=== PATIENT | female | born 1970 | race Caucasian/White ===

== ENCOUNTER 2019-01-16 17:10 | Emergency (ER) | payer OTHER ==
--- OUTSIDE RECORDS SUMMARY | 2019-01-16 17:12 | XMS REPORT | Clinical Summary ---
:1970 Author Organization [facility] Address [address] [place] [address] Care Team Providers Name Role Phone Asked, No Pcp Primary Care Provider Unavailable Allergies Active Allergy Reactions Severity Noted Date Comments Povidone-Iodine Rash Low 03/10/2017 Codeine GI Intolerance 03/10/2017 Prochlorperazine Other (See Comments) 03/10/2017 "almost went into a coma " Penicillins Rash Low 03/10/2017 Tetracyclines Other (See Comments) 03/10/2017 "felt like I am out of it" Medications Medication Sig Dispensed Refills Start Date End Date Status ondansetron (ZOFRAN) 4 Take 8 mg by 0 Active mg/5 mL solution mouth once. Active Problems Not on file Social History Tobacco Use Types Packs/Day Years Used Date Never Smoker Alcohol Use Drinks/Week oz/Week Comments No Sex Assigned at Date Recorded Not on file Job Start Date Occupation Industry Not on file Not on file Not on file Travel History Travel Start Travel End No recent travel history available. Last Filed Vital Signs Not on file Plan of Treatment Not on file Results Not on fileafter 01/15/2018 Advance Directives Patient has advance care planning documents on file. For more information, please contact:[address] [address]
--- OUTSIDE RECORDS SUMMARY | 2019-01-16 17:13 | XMS REPORT | Summary of Care ---
:1970 Author Organization [facility] Address [address] [place], [place] [address]- Encounter HQ Encntr_alias(FIN) [id number] Date(s): 04/20/16 - 04/20/16 [facility] [id number] [place] [address] Discharge Disposition: Home or Self Care Attending Physician: Geovanny aCrey MD Vital Signs No data available for this section Problem List No data available for this section Allergies, Adverse Reactions, Alerts Substance Reaction Severity Status Betadine Active Compazine Active erythromycin Active penicillins Active tetracyclines Active Medications No data available for this section Results No data available for this section Immunizations No data available for this section Procedures Procedure Date Related Diagnosis Body Site gall bladder Hysterectomy Shoulder Tonsil Social History Social History Type Response Smoking Status Never smoker; Exposure to Tobacco Smoke None; Cigarette Smoking Last 365 Days No; Reg Smoking Cessation Counseling No Assessment and Plan No data available for this section
--- OUTSIDE RECORDS SUMMARY | 2019-01-16 17:13 | XMS REPORT ---
:1970 Author Organization [facility] Address [address] [place] [address] Dr. Fontana[address] [place] [id number] Care Team Providers Name Role Phone Unavailable Unavailable Unavailable Problems This patient has no known problems. Allergies, Adverse Reactions, Alerts This patient has no known allergies or adverse reactions. Medications This patient has no known medications.
--- OUTSIDE RECORDS SUMMARY | 2019-01-16 17:13 | XMS REPORT | Continuity of Care Document ---
:1970 Author Organization Interface Problems Problem Status Onset Classification Date Comments Source Date Reported N39.0 - Active [facility] "URINARY TRACT 6 [facility] INFECTION, SITE" [id number]- Active [facility] HEART BURN , 6 City EPIGASTRIC SARAH 726.2 - Active [facility] SHOULDER 3 [facility] [place] BREATHING Active [facility] PROBLEM 2 Hospital CONGESTION Active [facility] 2 Hospital Medications Medication Details Route Status Patient Ordering Order Source Instructions Provider Date Xopenex 0.63 0.63 mg, 3 ml, NEB Active [facility] mg/3 mL NEB, TID, 24 012 Hospital inhalation ea, solution Substitution Allowed, SOLN Levaquin 750 750 mg, 1 tab, PO Active [facility] mg oral PO, Q24H, 10 012 Hospital tablet tab, Substitution Allowed Allergies, Adverse Reactions, Alerts Substance Category Reaction Severity Reaction Status Date Comments Source type Reported Betadine Assertion Drug Active [facility] allergy [facility] Compazine Assertion Drug Active [facility] allergy [facility] erythromycin Assertion Drug Active [facility] allergy [facility] penicillins Assertion Drug Active [facility] allergy [facility] tetracyclines Assertion Drug Active [facility] allergy [facility] Immunizations Immunization Date Given Site Status Last Updated Comments Source Results Order Results Value Reference Date Interpretation Comments Source Name Range Renal Renal PROCEDURE: CT ABDOMEN AND PELVIS WITHOUT CONTRAST 04/20 - [facility] Stone CT Stone /2015 - [facility] Clinical Indication: UTIs symptoms for 3 weeks. Mild anterior pelvic pain for several weeks. Read by: Devaughn Curry MD Dictated Date/time: 04/20/16 12:35 Comparison: None Electronically Signed by: Devaughn Curry MD 04/20/16 12:39 FINAL REPORT TECHNIQUE: Helical imaging was performed diaphragm through the symphysis with multiplanar reconstructions. IV CONTRAST: None. GI CONTRAST: Water. DLP: 477.06 mGy-cm FINDINGS: This examination is limited for the evaluation of solid organs and vascular structures due to lack of intravenous contrast. LOWER CHEST: The lung bases are clear. LIVER: Normal. GALLBLADDER: Normal. SPLEEN: Normal. PANCREAS: Normal. ADRENALS: Normal. KIDNEYS: Normal. BOWEL: Normal. PERITONEUM: No free intraperitoneal fluid or air. RETROPERITONEUM: No adenopathy. The aorta is normal. PELVIS: No pelvic mass. The urinary bladder is empty but otherwise normal. MUSCULOSKELETAL: The skeleton is intact. IMPRESSION: Negative. END REPORT SL: [id number] Abdomen Abdomen 1 VIEW ABDOMEN 04/10 - [facility] AP DX AP DX /2015 - [facility] INDICATION: Bilateral abdominal pain. Read by: Devaughn Crury MD Dictated Date/time: 04/10/16 17:49 Electronically Signed by: Devaughn Curry MD 04/10/16 17:50 FINAL REPORT COMPARISON: No priors available. 2 small indeterminate calcifications are noted in the pelvis just to the right of midline. Cannot completely exclude distal ureteral stones or bladder stones. These are 2 to 3 mm in diameter each. The b owel gas pattern, soft tissues and bony structures are otherwise normal. IMPRESSION: 2 small, 2 to 3 mm diameter, calcifications in the right pelvis as noted above. END IMPRESSION SL: [id number] Vital Signs Vital Sign Value Date Comments Source Weight 77.273 06/05/2012 [facility] Height 165.10 cm 06/05/2012 [facility] Height 165.10 cm 05/30/2012 [facility] Weight 77.273 05/30/2012 [facility] Encounters Location Location Encounter Encounter Reason Attending ADM DC Status Source Details Type Number For Provider Date Date Visit [facility] Emergency [id number] SARITA 05/30 05/30 Active [facility] 0 SARA /2011 [facility] Emergency [id number] WADE 06/04 06/05 Active [facility] 1 OLU /2011 [facility] Out[facility] Diag [id number] Geovanny Carey 04/10 04/11 [facility] [place] Outpt Diag [id number] Geovanny Carey 04/20 04/21 [facility] Outpatient [id number] GEOVANNY CAREY 05/[address] [facility] Procedures Procedure Code Date Perfomer Comments Source gall bladder [id number] [facility] Hysterectomy [id number] [facility] Shoulder [id number] [facility] Tonsil [id number] [facility]
--- OUTSIDE RECORDS SUMMARY | 2019-01-16 17:13 | XMS REPORT | Summary of Care ---
:1970 Author Organization [facility] Address [address] [place], [place] [address]- Encounter HQ Encntr_alias(FIN) [id number] Date(s): 04/10/16 - 04/10/16 [facility] [address] [place] [id number] Discharge Disposition: Home or Self Care Attending Physician: Geovanny Carey MD Vital Signs No data available for [...]
--- OUTSIDE RECORDS SUMMARY | 2019-01-16 17:13 | XMS REPORT | CCD ---
:1970 Author Organization [facility] Care Team Providers Name Role Phone Susanne Prince Consulting Provider Allergies, Adverse Reactions, Alerts Substance Reaction Status Betadine Active Compazine Active erythromycin Active penicillins Active tetracyclines Active Medications Medication Instructions Start Date End Date Status Xopenex 0.63 mg/3 mL 0.63 mg, 3 ml, NEB, TID, 24 05/30/2012 Ordered inhalation solution ea, Substitution Allowed, SOLN Levaquin 750 mg oral tablet 750 mg, 1 tab, PO, Q24H, 10 05/30/20122011 Ordered tab, Substitution Allowed Vital Signs Most recent to oldest [Reference Range]: 1 Height 165.10 cm (05/30/2012 15:45:00) Weight 77.273 kg (05/30/2012 15:45:00)
--- OUTSIDE RECORDS SUMMARY | 2019-01-16 17:13 | XMS REPORT | CCD ---
:1970 Author Organization [facility] Care Team Providers Name Role Phone Rony Maciel Consulting Provider Allergies, Adverse Reactions, Alerts Substance Reaction Status Betadine Active Compazine Active erythromycin Active penicillins Active tetracyclines Active Vital Signs Most recent to oldest [Reference Range]: 1 Height 165.10 cm (06/04/2012 23:51:00) Weight 77.273 kg (06/04/2012 23:51:00)
[2019-01-16] MEDS ORDERED: METOCLOPRAMIDE 10 MG/2mL INJ ONE (17:55)
[2019-01-16] MEDS ORDERED: NA CHLORIDE 0.9% 1,000 ML ONE ×2 (17:55→18:56)
[2019-01-16 18:02] LABS: Absolute Monocytes 0.7 K/uL (0.1-1.3); Absolute Neutrophil 8.5 K/uL (1.8-8.0); Hematocrit 42.2 % (36.0-45.0); Lymphocytes % 24.1 % (15.3-44.8); MPV 9.7 fL (7.6-11.3); Monocytes % 5.7 % (3.3-12.3)
[2019-01-16] MEDS ORDERED: ONDANSETRON 4 MG/2 ML VIAL ONE (18:14)
[2019-01-16 18:27] LABS: ALT/SGPT 37 U/L (12-78); AST/SGOT 17 U/L (15-37); Albumin 4.1 g/dL (3.4-5.0); Alkaline Phosphatase 72 U/L (45-117); BUN Blood Urea Nitrogen 20 mg/dL (7-18); Bicarbonate 27 mmol/L (21-32); Bilirubin Direct < 0.1 mg/dL (0-0.2); Bilirubin Total 0.5 mg/dL (0.2-1.0); Creatine Phosphokinase 123 U/L (26-192); Glucose Level 110 mg/dL (74-106); Lipase 187 U/L (73-393); Potassium 3.5 mmol/L (3.5-5.1); Protein, Total 8.2 g/dL (6.4-8.2); Sodium Level 138 mmol/L (136-145)
[2019-01-16 18:46] LABS: Urine Blood NEGATIVE (NEG); Urine Glucose NEGATIVE (NEG); Urine Protein NEGATIVE (NEG); Urine Specific Gravity >1.030 (1.005-1.030); Urine pH 5.5 (5.0-7.0)
[2019-01-16] MEDS ORDERED: ACETAMINOPHEN 500 MG TAB ONE (18:56)
--- NOTE | 2019-01-16 19:21 | ER ---
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 Pt denies vomiting. Transition of care: patient was not received from another setting of care. Onset of symptoms was January 16, 2019. Risk Assessment: Do you want to hurt yourself or someone else? Patient reports no desire to harm self or others. Care prior to arrival: None. 17:22 Method Of Arrival: Ambulatory aa5 17:22 Acuity: ERNST 3 aa5 19:44 Initial Sepsis Screen: Does the patient meet any 2 criteria? No. Patient's initial ak1 sepsis screen is negative. Does the patient have a suspected source of infection? No. Patient's initial sepsis screen is negative. 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 - Social history:: Smoking status: Patient/guardian denies using tobacco. - Ebola Screening: : No symptoms or risks identified at this time. Screenin:14 Abuse screen: Denies threats or abuse. Denies injuries from another. Nutritional ch screening: No deficits noted. Tuberculosis screening: No symptoms or risk factors identified. Fall Risk None identified. Assessment: 18:14 General: Appears in no apparent distress. comfortable, Behavior is calm, cooperative, ch appropriate for age. Pain: Complains of pain in top of head Pain currently is 6 out of 10 on a pain scale. Pain began suddenly. Neuro: Level of Consciousness is awake, alert, obeys commands, Oriented to person, place, time, situation, Sighter are equal bilaterally Moves all extremities. Full function Gait is steady, Speech is normal, Facial symmetry appears normal, Facial symmetry: tongue is midline, Pupils are PERRLA. Respiratory: Airway is patent Trachea midline Respiratory effort is even, unlabored, Respiratory pattern is regular. GI: Abdomen is round non-distended, Bowel sounds present X 4 quads. Abd is soft and non tender X 4 quads. Reports nausea. : No signs and/or symptoms were reported regarding the genitourinary system. Derm: Skin is intact, Skin is dry, Skin is pale. Musculoskeletal: Reports pt states she feels weak and achy. 18:49 Reassessment: Patient appears in no apparent distress at this time. Patient and/or ch family updated on plan of care and expected duration. Pain level reassessed. Patient is alert, oriented x 3, equal unlabored respirations, skin warm/dry/pink. pt states she feels slightly better, but still having pain, still slightly nauseated. 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 pt states she still does not need to urinate. pt given second L fluid. 18:51 Reassessment: Patient appears in no apparent distress at this time. Patient and/or ch family updated on plan of care and expected duration. Pain level reassessed. Patient is alert, oriented x 3, equal unlabored respirations, skin warm/dry/pink. Patient states feeling better. 19:38 Reassessment: pt wants to finish her IV fluids and then see if she "needs" the Toradol. ak1 pt currently refused the toradol. Patient denies pain at this time. 20:08 Reassessment: Patient appears in no apparent distress at this time. Patient is alert, rr5 oriented x 3, equal unlabored respirations, skin warm/dry/pink. patient refused for the Toradol injection. discharge instruction given and explained without complaints made. Patient states feeling better. Patient states symptoms have improved. Vital Signs: 17:24 BP 139 / 85; Pulse 86; Resp 16 S; Temp 98.2(O); Pulse Ox 99% on R/A; Weight 81.65 kg aa5 (R); Height 5 ft. 5 in. (165.10 cm) (R); Pain 6/10; 18:14 BP 136 / 88; Pulse 74; Resp 16; Temp 99; Pulse Ox 100% on R/A; Pain 5/10; ch 18:52 BP 126 / 82; Pulse 64; Resp 14; Pulse Ox 99% on R/A; Pain 5/10; ch 19:43 BP 114 / 76; Pulse 74; Resp 16; Temp 98.8; Pulse Ox 97% on R/A; Pain 2/10; ak1 20:08 BP 117 / 73; Pulse 77; Resp 17; Temp 98; Pulse Ox 99% on R/A; rr5 17:24 Body Mass Index 29.95 (81.65 kg, 165.10 cm) aa5 ED Course: 17:15 Patient arrived in ED. mr 17:23 Triage completed. aa5 17:24 Arm band placed on. aa 17:27 Hernandez Lei PA is PHCP. [facility] 17:27 Ivan Keene MD is Attending Physician. [facility] 17:50 No apparent distress. Resting quietly. ch 17:50 No provider procedures requiring assistance completed. Inserted saline lock: 18 gauge ch in left antecubital area, using aseptic technique. Blood collected. Missed attempt(s): 20 gauge in right forearm. Bleeding controlled, band aid applied, catheter tip intact. 18:02 Jennifer Melendez, RN is Primary Nurse. ch 18:14 Patient has correct armband on for positive identification. Placed in gown. Bed in low ch position. Call light in reach. Side rails up X 1. Pulse ox on. NIBP on. Warm blanket given. 19:17 Report given to marlen. ch 19:32 Marlen Elam, RN is Primary Nurse. ak1 20:09 IV discontinued, intact, bleeding controlled, No redness/swelling at site. Pressure rr5 dressing applied. Administered Medications: 17:55 Drug: NS 0.9% 1000 ml Route: IV; Rate: 1 bolus; Site: left antecubital; ch 18:40 Follow up: IV Status: Completed infusion; IV Intake: 1000ml ch 18:00 Drug: Zofran 4 mg Route: IVP; Site: left antecubital; ch 18:49 Follow up: Response: No adverse reaction; Nausea is decreased ch 18:18 Not Given (Patient Refused): Reglan 10 mg IVP once; put in bolus ch 18:49 Drug: NS 0.9% 1000 ml Route: IV; Rate: 1 bolus; Site: left antecubital; 20:00 Follow up: Response: No adverse reaction; IV Status: Completed infusion; IV Intake: rr5 1000ml 20:09 Not Given (Patient Refused): Ketorolac 30 mg IVP once rr5 Intake: 18:40 IV: 1000ml; Total: 1000ml. 20:00 IV: 1000ml; Total: 2000ml. rr5 Outcome: 19:22 Discharge ordered by . kyler 19:44 Condition: good ak1 20:09 Discharged to home ambulatory. rr5 20:09 Discharge instructions given to patient, Instructed on discharge instructions, follow up and referral plans. Demonstrated understanding of instructions, follow-up care. 20:11 Patient left the ED. rr5 Signatures: Jennifer Melendez, RN RN Hernandez Carnes PA PA jmm Rivera, Mary mr Parish, Alexa, OCTAVIO RN aa5 Marlen Elam RN RN ak1 Gianni Muhammad RN RN rr5
--- NOTE | 2019-01-16 19:22 | EDPHYS ---
Physician Documentation [facility] Name: Mely Lindsey Age: 48 yrs Sex: Female : 1970 Arrival Date: 01/16/2019 Time: 17:15 Bed 14 Private MD: ED Physician Ivan Keene HPI: 01/16 17:38 This 48 yrs old Female presents to ER via Ambulatory with complaints of Heat jmm Exposure. 17:38 The patient complains of pain to the top of head. Onset: The symptoms/episode jmm began/occurred gradually. Associated signs and symptoms: Pertinent positives: weakness, Pertinent negatives: fever. This is a 48 year old female with a history of acid reflux that presets to the ED with complaints of headache, nausea, fatigue. 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 Patient attempted to drink fluids and take tylenol with no relief. . 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 - Social history:: Smoking status: Patient/guardian denies using tobacco. - Ebola Screening: : No symptoms or risks identified at this time. ROS: 17:38 Cardiovascular: Negative for chest pain, palpitations, and edema, Respiratory: Negative jmm for shortness of breath, cough, wheezing, and pleuritic chest pain. 17:38 Constitutional: Positive for fatigue. 17:38 Abdomen/GI: Positive for nausea. 17:38 All other systems are negative. Exam: 17:38 Head/Face: atraumatic. Eyes: EOMI, no conjunctival erythema appreciated ENT: Moist jmm Mucus Membranes Neck: Trachea midline, Supple Chest/axilla: Normal chest wall appearance and motion. Cardiovascular: Regular rate and rhythm. No edema appreciated Respiratory: Normal respirations, no respiratory distress appreciated Abdomen/GI: Non distended, soft Back: Normal ROM Skin: General appearance color normal MS/ Extremity: Moves all extremities, no obvious deformities appreciated, no edema noted to the lower extremities Neuro: Awake and alert, normal gait Psych: Behavior is normal, Mood is normal, Patient is cooperative and pleasant 17:38 Constitutional: The patient appears in no acute distress, alert, awake. Vital Signs: 17:24 BP 139 / 85; Pulse 86; Resp 16 S; Temp 98.2(O); Pulse Ox 99% on R/A; Weight 81.65 kg aa5 (R); Height 5 ft. 5 in. (165.10 cm) (R); Pain 6/10; 18:14 BP 136 / 88; Pulse 74; Resp 16; Temp 99; Pulse Ox 100% on R/A; Pain 5/10; ch 18:52 BP 126 / 82; Pulse 64; Resp 14; Pulse Ox 99% on R/A; Pain 5/10; ch 19:43 BP 114 / 76; Pulse 74; Resp 16; Temp 98.8; Pulse Ox 97% on R/A; Pain 2/10; ak1 20:08 BP 117 / 73; Pulse 77; Resp 17; Temp 98; Pulse Ox 99% on R/A; rr5 17:24 Body Mass Index 29.95 (81.65 kg, 165.10 cm) aa5 MDM: 17:38 Patient medically screened. kyler 19:19 Data reviewed: vital signs, nurses notes. Counseling: I had a detailed discussion with kyler the patient and/or guardian regarding: the historical points, exam findings, and any diagnostic results supporting the discharge/admit diagnosis, lab results, the need for outpatient follow up, to return to the emergency department if symptoms worsen or persist or if there are any questions or concerns that arise at home. ED course: Patient states feeling much better in the ED. Patient has had similar headache in the past with heat exhaustion. I do not suspect SAH or meningitis. Patient is advised to follow up with pcp or otherwise given strict return precautions. Patient understood and agrees with the plan of care. . 01/16 17:39 Order name: Basic Metabolic Panel; Complete Time: 18:46 [facility] 01/16 17:39 Order name: CBC with Diff; Complete Time: 18:25 [facility] 01/16 17:39 Order name: Creatinine for Radiology; Complete Time: 18:46 [facility] 01/16 17:39 Order name: Hepatic Function; Complete Time: 18:46 [facility] 01/16 17:39 Order name: Lipase; Complete Time: 18:46 [facility] 01/16 17:39 Order name: CPK; Complete Time: 18:46 [facility] 01/16 17:39 Order name: IV Saline Lock; Complete Time: 17:57 [facility] 01/16 17:39 Order name: Labs collected and sent; Complete Time: 18:19 [facility] 01/16 18:00 Order name: Urine Dipstick--Ancillary (enter results); Complete Time: 18:46 ss 01/16 17:59 Order name: Urine Dipstick-Ancillary (obtain specimen); Complete Time: 17:59 ss Administered Medications: 17:55 Drug: NS 0.9% 1000 ml Route: IV; Rate: 1 bolus; Site: left antecubital; ch 18:40 Follow up: IV Status: Completed infusion; IV Intake: 1000ml ch 18:00 Drug: Zofran 4 mg Route: IVP; Site: left antecubital; ch 18:49 Follow up: Response: No adverse reaction; Nausea is decreased ch 18:18 Not Given (Patient Refused): Reglan 10 mg IVP once; put in bolus ch 18:49 Drug: NS 0.9% 1000 ml Route: IV; Rate: 1 bolus; Site: left antecubital; ch 20:00 Follow up: Response: No adverse reaction; IV Status: Completed infusion; IV Intake: rr5 1000ml 20:09 Not Given (Patient Refused): Ketorolac 30 mg IVP once rr5 Disposition: 01/17 07:30 Co-signature as Attending Physician, Ivan Keene MD. rn Disposition: 01/16/19 19:22 Discharged to Home. Impression: Headache, Nausea. - Condition is Stable. - Discharge Instructions: General Headache Without Cause, Heat Exhaustion Information. - Medication Reconciliation Form, Thank You Letter, Antibiotic Education, Prescription Opioid Use form. - Follow up: Private Physician; When: 2 - 3 days; Reason: Recheck today's complaints, Continuance of care, Re-evaluation by your physician. Signatures: Dispatcher [employer] EDMS Jennifer Melendez RN RN Hernandez Carnes PA PA jmm Nieto, Roman, MD MD rn Calderon, Audri, RN RN aa5 Sheri Scott RN RN ss Roque, Raymond, RN RN rr5 Corrections: (The following items were deleted from the chart) 01/16 20:11 19:22 01/16/2019 19:22 Discharged to Home. Impression: Headache; Nausea. Condition is rr5 Stable. Forms are Medication Reconciliation Form, Thank You Letter, Antibiotic Education, Prescription Opioid Use. Follow up: Private Physician; When: 2 - 3 days; Reason: Recheck today's complaints, Continuance of care, Re-evaluation by your physician. kyler
[2019-01-16] MEDS ORDERED: KETOROLAC 30 MG/ML INJ ONE (19:43)
== END 2019-01-16 20:11 | disposition home or self-care (01) ==
LOC: ER 17:10
DX: R51 Headache (principal); R11.0 Nausea; R53.83 Other fatigue; K21.9 Gastro-esophageal reflux disease without esophagitis; Z88.1 Allergy status to other antibiotic agents; Z88.0 Allergy status to penicillin
CPT/HCPCS: 36415; 80048; 80076; 81003; 82550; 83690; 85025; 96361; 96374; 99284; J2405; J2765; J7030